=== PATIENT | male | born 1980 | race Caucasian/White ===

== ENCOUNTER 2019-06-03 18:23 | Observation (INO) | payer BC ==
[2019-06-03] MEDS ORDERED: Iopamidol 612 MG/ML 100 ML Bottle IV SCH (18:45)
[2019-06-03] MEDS ORDERED: Iodixanol 652 MG/ML 100 ML Bottle IV SCH (19:15)
[2019-06-03] MEDS ORDERED: Sodium Chloride 0.9% 1,000 ML IV SCH (19:35)
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
[2019-06-03] MEDS ORDERED: fentaNYL 100 MCG/2 ML SDV IVPUSH ONE (19:54)
[2019-06-03] MEDS ORDERED: Ondansetron 4 MG/2 ML SDV IVPUSH ONE (20:53)
[2019-06-03] MEDS ORDERED: INTERFERON BETA SQ SCH (21:00)
[2019-06-03] MEDS ORDERED: ALBUMIN SQ SCH (21:00)
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
[2019-06-03] MEDS: Sodium Chloride 0.9% 50 ML SDV FLUSH ONE (22:00)
[2019-06-03] MEDS ORDERED: fentaNYL 100 MCG/2 ML SDV IV PRN (22:09)
[2019-06-03] MEDS ORDERED: Ondansetron 4 MG Tab.DIS PO PRN (22:14)
[2019-06-03] MEDS ORDERED: fentaNYL 100 MCG/2 ML SDV IVPUSH PRN (22:15)
[2019-06-03] MEDS ORDERED: Acetaminophen/HYDROcodone 325-5 MG Tab ONE (22:31)
[2019-06-04] MEDS: Acetaminophen/HYDROcodone 325-5 MG Tab PO PRN ×3 (01:46→09:37)
[2019-06-04] MEDS: Sodium Chloride 0.9% 50 ML SDV FLUSH ONE (04:27)
--- NOTE | 2019-06-04 10:52 | CT ---
Date of Service: 06/03/19 Clinical Data: trauma ENHANCED CHEST CT: Multislice acquisition through the chest with IV contrast was performed. No priors. There are minimal atelectatic changes in the dependent portions of both lungs. The lungs are otherwise clear. No pneumothorax. No pleural effusions. The heart size is normal. No pericardial effusion. No hilar or mediastinal adenopathy. No aortic aneurysm. No displaced fractures. IMPRESSION: No acute abnormalities. ENHANCED ABDOMEN AND PELVIC CT: Multislice axial acquisition was performed with IV contrast. Oral contrast was not utilized. The lung bases are clear. There is mild diffuse fatty infiltration of the liver. No focal hepatic lesions. The gallbladder appears normal. The spleen appears normal. The pancreas appears normal. The right and left adrenals appear normal. The right and left kidneys appear normal and enhance symmetrically. The bladder is fluid filled. It appears normal. No free air. No free fluid. No dilated loops of bowel. No adenopathy. No aortic aneurysm or dissection. No displaced fractures. The patient is status post internal fixation of the left femur with an intramedullary fernando. IMPRESSION: No acute abnormalities. [id number] [facility] [place]
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
[2019-06-04] MEDS ORDERED: Non-Formulary Medication 1 Each (Bupropion [Wellbutrin] 75 MG) PO SCH (20:00)
== END 2019-06-04 09:35 | disposition home or self-care (01) ==
LOC: EDBD → LB.ED 18:23 → LB.MS 20:44 → UNDOADMOB 21:07
PROVIDERS: ADMIT Nurse Practitioner; ATTEND Nurse Practitioner
DX: R07.9 Chest pain, unspecified (principal); M79.10 Myalgia, unspecified site; I10 Essential (primary) hypertension; F32.9 Major depressive disorder, single episode, unspecified; F41.9 Anxiety disorder, unspecified; V86.52XA Driver of snowmobile injured in nontraffic accident, initial encounter
CPT/HCPCS: 36415; 71260; 73600-LT; 74177; 80053; 81001; 82550; 85025; A0425; A0429; A9270-GY; G0480; J2405; J3010; J7030